=== PATIENT | female | born 1980 | race African-American/Black ===

== ENCOUNTER 2019-07-22 18:42 | Emergency (ER) | payer OTHER ==
--- NOTE | 2019-07-22 18:52 | PDOC ---
Rapid Medical Evaluation Chief Complaint: Pain, Acute Medical Evaluation: 07/22/19 18:49 This patient had a brief in-person evaluation in triage cc: sent from orthopedic doctor for further evaluation of right knee swelling and pain after steroid injection at pain managements office HPI: even and unlabored breathing right knee with swelling and small amount of erythema orders: This patient will proceed to ED for further evaluation. Discharge Disposition - Diagnosis Knee pain - Referrals - Patient Instructions - Post Discharge Activity
[2019-07-22 19:07] VITALS: BP 147/91; PULSE 19; TEMP 98.4; BMI 29.4
--- NOTE | 2019-07-22 19:44 | PDOC ---
History of Present Illness - General Chief Complaint: Pain, Acute Stated Complaint: R/PATELLA PAIN Time Seen by Provider: 07/22/19 18:52 - History of Present Illness Initial Comments: 07/22/19 19:38 38-year-old female presents for evaluation of right knee pain. She received a corticosteroid injection today at her pain management office complained of postinjection pain and swelling of the right knee went back and received a shot of what sounds like Toradol and she comes to the emergency room for worsening symptoms. She has no systemic symptoms. Past History - Past Medical History Allergies/Adverse Reactions: Allergies Allergy/AdvReac Type Severity Reaction Status Date / Time No Known Allergies Allergy Verified 07/22/19 18:52 COPD: No - Suicide/Smoking/Psychosocial Hx Smoking History: Never smoked Information on smoking cessation initiated: No Hx Alcohol Use: No Drug/Substance Use Hx: No Review of Systems - Review of Systems Constitutional: No: Fever Musculoskeletal: Yes: Joint Pain *Physical Exam - Vital Signs Last Vital Signs Temp Pulse Resp BP Pulse Ox 98.4 F 19 L 19 147/91 99 07/22/19 18:48 07/22/19 18:48 07/22/19 18:48 07/22/19 18:48 07/22/19 18:48 - Physical Exam Comments: 07/22/19 19:41 Right knee skin color and temperature are normal range of motion 0-90 with mild discomfort terminal flexion. There is moderate swelling about the knee hard to ascertain if there is an intra-articular effusion she resisted examination. No instability she does have medial lateral joint line tenderness without gross sensory motor deficits with a negative straight leg raise test. No patellofemoral apprehension thighs and calves are soft and nontender she neurovascularly intact. Medical Decision Making - Medical Decision Making 07/22/19 19:42 Postinjection pain and swelling after corticosteroid injection. No indication of infection or septic arthritis. Weight-bear as tolerated I will give her crutches and have her follow-up with orthopedic surgery *DC/Admit/Observation/Transfer Diagnosis at time of Disposition: Knee pain - Discharge Dispostion Disposition: HOME Condition at time of disposition: Stable Decision to Admit order: No - Referrals Referrals: David Summers MD [Primary Care Provider] - Tip Henriquez DO [Staff Physician] - - Patient Instructions Additional Instructions: Weight-bear as tolerated with crutches. Follow-up with orthopedic surgery in 1- 2 days without fail for further evaluation and treatment options. And return to the emergency room should symptoms worsen. - Post Discharge Activity
== END 2019-07-22 19:59 | disposition home or self-care (01) ==
LOC: JERFT 18:42
DX: G89.18 Other acute postprocedural pain (principal); M25.561 Pain in right knee; Z98.890 Other specified postprocedural states
CPT/HCPCS: 99281-25